=== PATIENT | male | born 1945 | race Caucasian/White ===

== ENCOUNTER → 2022-03-07 | Outpatient (CLI) | payer MEDICARE ==
[~2022-03-07] MED LIST: BUPR300T PO; CATHETER FLUSH 10 ML SYR IVP PRN; FURO20TA4 PO; LISI10TA PO; MNTL10T PO; POTA10TA21 PO; TEST90SO TD
[2022-03-07 08:31] VITALS: BP 170/85
--- NOTE | 2022-03-07 10:18 | Cardiology Stress Test Report ---
Stress Test Report Date of Procedure/Referring: Date of Procedure: Mar 07, 2022 PCP Elsa Benoit DO Admitting Physician Admitting Physician: Attending Physician: Kitty Benoit Dnp Baseline Vital Signs Vital Signs Date Time Temp Pulse Resp B/P (MAP) Pulse Ox O2 Delivery O2 Flow Rate FiO2 03/07/22 08:31 65 98 170/85 (113) Summary: Patient receive a resting and stress dose of Myoview, images were acquired and reviewed in the short axis view, horizontal long axis view and vertical long axis view. TID: 1.08 SSS: 5 SDS: 5 EF: 52 1. Diaphragmatic attenuation with reversible ischemia involving the mid to apical inferior wall 2. Normal left ventricular size with mild hypokinesia of the inferior wall, ejection fraction 52% Copy Copies To 1: ELSA BENOIT BASHAR J MD Mar 07, 2022 10:18
== END ==
LOC: CARD 07:15
PROVIDERS: ATTEND Nurse Practitioner Family
DX: R07.89 Other chest pain (principal); R00.2 Palpitations
CPT/HCPCS: 78452; 93017; A9502

== ENCOUNTER 2022-03-18 12:00 | Day surgery (SDC) | payer MEDICARE ==
[~2022-03-18] VITALS: Ht 175.3 cm; Wt 106.7 kg
[2022-03-18] VITALS (8 sets, daily range): BP systolic 132–136; BP diastolic 69–86
[2022-03-18 10:22] LABS: HEMATOCRIT 49 % (40-54); HEMOGLOBIN 16.8 g/dL (13.3-17.7); MEAN CORPUSCULAR HEMOGLOBIN 33 pg (25-34); MEAN CORPUSCULAR HGB CONC 35 g/dL (32-36); MEAN CORPUSCULAR VOLUME 94 fL (80-99); MEAN PLATELET VOLUME 10.2 fL (9.0-12.2); PLATELET COUNT 226 10^3/uL (130-400); WHITE BLOOD COUNT 7.5 10^3/uL (4.3-11.0)
[2022-03-18 10:33] LABS: PROTHROMBIN TIME PATIENT 13.6 SEC (12.2-14.7)
[2022-03-18 10:41] LABS: ALBUMIN 4.1 GM/DL (3.2-4.5); BILIRUBIN,TOTAL 0.6 MG/DL (0.1-1.0); CALCIUM 9.4 MG/DL (8.5-10.1); CREATININE SERUM 1.15 MG/DL (0.60-1.30); POTASSIUM 4.4 MMOL/L (3.6-5.0); TOTAL PROTEIN 6.9 GM/DL (6.4-8.2)
[~2022-03-18 12:00] MED LIST changes: +ASPI-999 PO; +BUPR300T98 PO; -CATHETER FLUSH 10 ML SYR IVP PRN; +CHOL10004 PO; +FINA5TAB6 PO; +FURO40TA4 PO; +HEParin (CATH LAB) 2,000 ML IV ONE; +LIDOCAINE 1% INJ 30 ML (XYLOCAINE) VIAL ONE; +LOSA50TA63 PO; +METF-397 PO; +METO-351 PO; +NS IV 1000 ML 1,000 ML IV SCH; +NS IV 1000 ML 1,000 ML ONE; +PANT20TA18 PO; +POTA99TA26 PO; +TURM1TAB PO; +VITA1CAP42 PO
[2022-03-18] MEDS ORDERED: MIDAZOLAM 5 MG/5 ML (VERSED) VIAL ONE (13:09)
[2022-03-18] MEDS ORDERED: fentaNYL INJ 100 MCG/2 ML AMP ONE (13:09)
--- NOTE | 2022-03-18 14:06 | Discharge Inst-Cardiology ---
Discharge Inst-Cardiac Discharge Medications Continued Medications: Aspirin (Aspirin) 81 Mg Tab.chew 81 MG PO DAILY, TAB B Complex with Vitamin C (Super B with Vit C) 1 Each Capsule 1 EACH PO DAILY, CAP Bupropion HCl (Bupropion Xl) 300 Mg Tab.er.24h 300 MG PO DAILY for Smoking Cessation, TAB Cholecalciferol (Vitamin D3) (Vitamin D3) 25 Mcg (1000 Unit) Tablet 25 MCG PO DAILY, TAB Finasteride (Finasteride) 5 Mg Tablet 5 MG PO HS, TAB Furosemide (Furosemide) 40 Mg Tablet 40 MG PO PRN PRN for EDEMA, TAB Losartan Potassium (Losartan Potassium) 50 Mg Tablet 50 MG PO DAILY, TAB Metoprolol Succinate (Toprol Xl) 25 Mg Tab.er.24h 25 MG PO DAILY, TAB Pantoprazole Sodium (Pantoprazole Sodium) 20 Mg Tablet.dr 20 MG PO DAILY, TAB Potassium Gluconate (Potassium) 595 Mg (99 Mg) Tablet 99 MG PO DAILY, TAB Turm/Ging/Arslan/Yuc/Thierry/Ana Luisa/Hor (Tumersaid Tablet) 100-100 Mg Tablet 1 EACH PO DAILY, TAB Discontinued Medications: Metformin HCl (Metformin HCl) 500 Mg Tablet 500 MG PO DAILY, TAB Patient Instructions Patient Instructions: Hold METFORMIN until the morning of 03/21/22, then resume previous home dose TRESA DO MD FACP [facility] Mar 18, 2022 14:06
--- NOTE | 2022-03-18 14:07 | Discharge Inst-Post CATH ---
Discharge Inst-CATH/EP Post Cardiac Cath/EP D/C Inst Follow Up/Plan F/u with Dr Dodson in 2-3 weeks ACTIVITY * Go Home directly and rest. * Limit activity of the leg (or wrist if it was used) for 7 days including aerobics, swimming, jogging, bicycling, etc. * Restrict stair-climbing for 7 days if possible, if not, climb up with your non-cath leg, then bring together on the same step. * Avoid lifting, pushing, pulling or excessive movement of the affected e xtremity for 7 days. * Customary sexual activity may be resumed after 2 days-use caution not to use a position that strains or causes pain to the affected extremity. * No driving for 24 hours. * NO SMOKING. * Avoid straining for bowel movements for 7 days. * Gentle walking on level ground is allowed. * Returning to work will depend on the type of procedure and the results. Your doctor will discuss this with you. CALL YOUR DOCTOR FOR ANY OF THE FOLLOWING: *If bleeding from the puncture site occurs- Apply gentle pressure to site with clean cloth and call your doctor or EMS. * If a knot or lump forms under the skin, increases in size, or causes pain. * If bruising appears to be worsening or moving further down your leg instead of disappearing. * Temperature above 101 F. CARE OF YOUR GROIN INCISION; * Bruising or purple discoloration of the skin near the puncture site is common. * You may shower only, no bathtub bathing for 5 days. Be careful to avoid slipping as your leg may feel stiff. * If a closure device was used on your femoral artery, please see the attached guide regarding care of the device and your leg. * Leave dressing on FOR 24 hours. CARE OF YOUR WRIST INCISION; * Bruising or purple discoloration of the skin near the puncture site is common. * You may shower. * DO NOT submerge wrist. * Leave dressing on FOR 24 hours. TRESA DODSON MD [facility] Mar 18, 2022 14:07
--- NOTE | 2022-03-18 14:08 | Cardiac Procedure Note-CS/ASA ---
Pre-Procedure Note Pre-Op Procedure Note Date of Available H&P: Mar 14, 2022 Date H&P Reviewed: Mar 18, 2022 Time H&P Reviewed: 12:30 History & Physical: No changes noted Conscious Sedation Pre-Proced ASA Score 3 For ASA 3 and 4: Consider anesthesia and medical clearance. Also, for patients with a history of failed moderate sedation consider anesthesia. Airway Lungs Heart ASA score ASA 1: a normal healthy patient ASA 2: a patient with a mild systemic disease (mid diabetes, controlled hypertension, obesity ASA 3: a patient with a severe systemic disease that limits activity (angina, COPD, prior Myocardial infarction) ASA 4: a patient with an incapacitating disease that is a constant threat to life (CHF, renal failure) ASA 5: a moribund patient not expected to survive 24 hrs. (ruptured aneurysm) ASA 6: a declared brain- patient whose organs are being harvested. For emergent operations, add the letter E after the classification Mallampati Classification Grade 2 Sedation Plan Analgesia, Amnesia, Plan communicated to team members The patient is an appropriate candidate to undergo the planned procedure, sedation, and anesthesia. The patient immediately re-assessed prior to indication. TRESA DO MD FACP [facility] Mar 18, 2022 14:08
[2022-03-18] MEDS ORDERED: PATIENT MAY USE OWN MEDS, ALL PO SCH (14:15)
[2022-03-18] MEDS ORDERED: NS IV 1000 ML 1,000 ML IV SCH (14:15)
--- NOTE | 2022-03-18 14:46 | CARDIAC CATHETERIZATION ---
DATE OF SERVICE: 03/18/2022 CARDIAC CATHETERIZATION REPORT The patient is a 76-year-old gentleman who has coronary artery disease risk factors and who has shortness of breath. A recent stress test was reported as having shown inferior ischemia. He was referred to us and we recommended cardiac catheterization because of his risk factors, nonspecific symptoms and a reportedly abnormal stress test. Informed consent was obtained. DESCRIPTION OF PROCEDURE: He was brought to the cardiac catheterization laboratory in a fasting state. Right groin was prepared and draped in the usual sterile fashion. Lidocaine 1% was used for local anesthesia. Modified Seldinger technique was used to advance a 5-Monegasque sheath in right femoral artery, 5-Monegasque JL4 catheter for left angiography, 5-Monegasque JR4 catheter for right coronary angiography, 5-Monegasque pigtail catheter was used for left heart catheterization and left ventricular angiography. At the end of the procedure, angiography of the right femoral artery was carried out through the sheath and Mynx was used to achieve hemostasis. He tolerated the procedure well. HEMODYNAMICS: Left ventricular end-diastolic pressure following coronary angiography was 18 mmHg. There was no significant pressure gradient on pullback across the aortic valve. CORONARY ANGIOGRAPHY: Left main coronary artery, left anterior descending artery, left circumflex artery, right coronary artery do not exhibit angiographically significant disease. Right coronary artery is dominant. LEFT VENTRICULAR ANGIOGRAPHY: Left ventricular angiography was carried out in the right anterior oblique projection. Global left ventricular systolic function is normal. No distinct regional wall motion abnormality is seen in this study. Left ventricular ejection fraction approximately 60%. CONCLUSIONS: 1. No angiographically significant obstructive coronary artery disease. 2. Normal global left ventricular systolic function with ejection fraction of 60%. 3. Left ventricular end-diastolic pressure 18 mmHg. DISCUSSION AND RECOMMENDATIONS: Based on results of the study, it appears appropriate to continue a conservative approach. Recent stress test appears to have been a false positive study. Job ID: [id number] DocumentID: [id number] Dictated Date: 03/18/2022 14:00:45 Supply Chain Business Analyst Date: 03/18/2022 14:45:47 Dictated By: TRESA DO MD, MA, FACP, FACC,
== END 2022-03-18 17:20 | disposition home or self-care (01) ==
LOC: CATH 12:00
PROVIDERS: ATTEND Internal Medicine Cardiovascular Disease
DX: R94.39 Abnormal result of other cardiovascular function study (principal); I10 Essential (primary) hypertension; E11.9 Type 2 diabetes mellitus without complications; Z79.84 Long term (current) use of oral hypoglycemic drugs; Z87.891 Personal history of nicotine dependence
CPT/HCPCS: 80053; 80061; 85027; 85610; 85730; 87081; 93005; 93458; C1760; C1894; 36415